=== PATIENT | male | born 1985 | race African-American/Black ===

== ENCOUNTER 2020-06-29 01:05 | Emergency (ER) | payer SELFPAY ==
[~2020-06-29] VITALS: Ht 170.2 cm; Wt 90.7 kg
[2020-06-29 01:06] VITALS: BP 114/78
--- NOTE | 2020-06-29 01:09 | NUR ---
biba to bed 04
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
--- NOTE | 2020-06-29 01:35 | NUR ---
pt discharged with paperwork signed. no other point of care done .
== END 2020-06-29 01:35 | disposition home or self-care (01) ==
LOC: MED 01:05
DX: M25.571 Pain in right ankle and joints of right foot (principal); F41.9 Anxiety disorder, unspecified
CPT/HCPCS: 99283

== ENCOUNTER 2021-10-06 01:07 | Emergency (ER) | payer MEDICAID ==
[~2021-10-06] VITALS: Ht 165.1 cm; Wt 73.5 kg
[2021-10-06] MEDS ORDERED: LIDOCAINE MPF 1% 10 MG/ML VIAL INJ ONE (01:30)
[2021-10-06 01:41] VITALS: BP 117/71
--- NOTE | 2021-10-06 01:57 | NUR ---
patient to lobby
[2021-10-06] MEDS ORDERED: LIDOCAINE MPF 1% 10 ML ONE (02:56)
--- NOTE | 2021-10-06 03:00 | NUR ---
BERNIE WHALEN PERFORMING SUTURE ON PATIENT.
[2021-10-06] MEDS ORDERED: CEPH-588 PO (04:14)
[2021-10-06 04:38] VITALS: BP 117/71
--- NOTE | 2021-10-06 04:38 | NUR ---
SEEN BY ERMD NO NURSING INTERVENTIONS NEEDED FOR PATIENT.
== END 2021-10-06 04:38 | disposition home or self-care (01) ==
LOC: MED 01:07
DX: S01.81XA Laceration without foreign body of other part of head, initial encounter (principal); W22.8XXA Striking against or struck by other objects, initial encounter; Y93.89 Activity, other specified; Y92.89 Other specified places as the place of occurrence of the external cause; Y99.8 Other external cause status
CPT/HCPCS: 12015; 70450; 90715; 99284; J2001